=== PATIENT | male | born 1940 | race Two or more races ===

== ENCOUNTER 2024-07-04 20:40 | Inpatient (IN) | payer MEDICARE ==
[~2024-07-04] VITALS: Ht 170.2 cm; Wt 58.5 kg
[2024-07-04 20:40] VITALS: BP 105/54; PULSE 77; RESP 17; RESP 18; TEMP 36.61404; TEMP 36.6404; O2SAT 98
[2024-07-04 23:28] VITALS: BP 105/54; PULSE 77; RESP 17; TEMP 36.61404; O2SAT 98
[2024-07-05] MEDS ORDERED: ONDANSETRON HCL 4MG/2ML INJ IV PRN (01:00)
[2024-07-05] MEDS ORDERED: MAGNESIUM HYDROXIDE 400MG/5ML 30ML UDC PO PRN (01:00)
[2024-07-05] MEDS: MEMANTINE HCL 5MG TABLET PO SCH (02:04)
[2024-07-05] MEDS: CARBIDOPA/LEVODOPA 25/100MG TABLET PO NR (02:04)
[2024-07-05 07:19] LABS: CHLORIDE 102 mEq/L (98-107); POTASSIUM 4.2 mEq/L (3.5-5.1); SODIUM 136 mEq/L (136-145)
[2024-07-05 07:20] LABS: CALCIUM 9.3 mg/dL (8.7-10.4); CARBON DIOXIDE 27 mEq/L (21-32)
[2024-07-05 07:25] LABS: CREATININE 0.6 mg/dL (0.6-1.3); GLUCOSE 111 mg/dL (70-105)
[2024-07-05 07:26] LABS: UREA NITROGEN BLOOD 11 mg/dL (9-23)
[2024-07-05 07:27] LABS: ALANINE AMINOTRANSFERASE < 7 IU/L (10-49); ALBUMIN 4.1 g/dL (3.2-4.8); ASPARTATE AMINOTRANSFERASE 18 IU/L (<34)
[2024-07-05 07:28] LABS: BILIRUBIN TOTAL 0.9 mg/dL (0.1-1.0); PREALBUMIN 19.3 mg/dl (10.0-40.0); PROTEIN TOTAL 6.8 g/dL (6.0-8.3)
[2024-07-05 07:41] LABS: BASOPHILS % 0.5 % (0.0-2.0); EOSINOPHILS % 2.6 % (0.0-5.0); HEMATOCRIT. 44.4 % (42.0-52.0); HEMOGLOBIN. 14.3 g/dL (14.0-18.0); LYMPHOCYTES % 25.7 % (20.0-50.0); MEAN CORPUSCULAR HEMOGLOBIN 30.7 pg (28.0-32.0); MEAN CORPUSCULAR HGB CONC 32.2 g/dL (31.0-37.0); MEAN CORPUSCULAR VOLUME 95.2 fL (80.0-94.0); MEAN PLATELET VOLUME 6.3 fl (7.4-10.4); NEUTROPHILS % 61.2 % (40.0-76.0); PLATELET 270 x1000/uL (130-400); RED BLOOD CELL COUNT 4.67 mill/uL (4.7-6.1); RED CELL DISTRIBUTION WIDTH 14.5 % (11.6-14.6); WHITE BLOOD COUNT 7.6 x1000/uL (4.5-11.0)
[2024-07-05] MEDS ORDERED: VENL75CA56 PO (07:57)
[2024-07-05] MEDS ORDERED: APIX5TAB PO (07:57)
[2024-07-05] MEDS ORDERED: MEMA5TAB42 PO (07:57)
[2024-07-05] MEDS ORDERED: DONE5TAB33 PO (07:57)
[2024-07-05] MEDS ORDERED: METO-385 PO (07:57)
[2024-07-05] MEDS ORDERED: AMAN100C18 PO (07:57)
[2024-07-05] MEDS ORDERED: ROPI0.2534 PO (07:57)
[2024-07-05] MEDS ORDERED: [UNRECOGNIZED DRUG - CODE] PO (07:57)
[2024-07-05] MEDS ORDERED: TRAZ-251 PO (07:57)
[2024-07-05] MEDS ORDERED: TAMS-11 PO (07:57)
[2024-07-05 08:00] VITALS: BP 109/54; PULSE 68; RESP 17; TEMP 36.28068; O2SAT 98
[2024-07-05] MEDS: CALCITONIN,SALMON, 3.7 ML NASAL SPRAY ONENSTRL SCH (09:00)
[2024-07-05] MEDS: CHOLECALCIFEROL (D3) 1000 UNIT TABLET PO SCH (09:16)
[2024-07-05] MEDS: METOPROLOL SUCCINATE 50MG ER TABLET PO SCH (09:17)
[2024-07-05] MEDS: DOCUSATE SODIUM 100MG CAPSULE PO SCH (09:18)
[2024-07-05] MEDS: POLYETHYLENE GLYCOL 3350 (17GM) 1 DOSE PACK PO SCH (09:18)
[2024-07-05] MEDS: TAMSULOSIN HCL 0.4MG SR CAPSULE PO SCH (09:18)
[2024-07-05] MEDS: FAMOTIDINE 20MG TABLET PO SCH (10:04)
[2024-07-05] MEDS ORDERED: CARB-324 PO (10:23)
[2024-07-05] MEDS ORDERED: NALOXONE HCL 0.4MG/ML VIAL IV PRN (10:30)
[2024-07-05] MEDS: ASPIRIN 81MG EC TABLET PO SCH (11:11)
[2024-07-05] MEDS: CARBIDOPA/LEVODOPA 25/100MG TABLET PO SCH (13:00)
[2024-07-05] MEDS: VENLAFAXINE HCL 37.5MG SR CAPSULE 24HR PO SCH (13:00)
[2024-07-05 20:00] VITALS: BP 125/67; PULSE 76; RESP 17; TEMP 36.28068
[2024-07-05] MEDS: DONEPEZIL HCL 10MG TABLET PO SCH (21:39)
[2024-07-05] MEDS: ROPINIROLE HCL 0.25MG TABLET PO SCH (21:39)
[2024-07-06 07:31] LABS: BASOPHILS % 0.5 % (0.0-2.0); EOSINOPHILS % 2.3 % (0.0-5.0); HEMATOCRIT. 45.1 % (42.0-52.0); HEMOGLOBIN. 14.4 g/dL (14.0-18.0); LYMPHOCYTES % 31.4 % (20.0-50.0); MEAN CORPUSCULAR HEMOGLOBIN 30.5 pg (28.0-32.0); MEAN CORPUSCULAR HGB CONC 31.8 g/dL (31.0-37.0); MEAN CORPUSCULAR VOLUME 95.8 fL (80.0-94.0); MONOCYTES % 9.5 % (2.0-8.0); NEUTROPHILS % 56.3 % (40.0-76.0); PLATELET 260 x1000/uL (130-400); RED BLOOD CELL COUNT 4.71 mill/uL (4.7-6.1); RED CELL DISTRIBUTION WIDTH 14.8 % (11.6-14.6); WHITE BLOOD COUNT 7.4 x1000/uL (4.5-11.0)
[2024-07-06 07:43] LABS: CARBON DIOXIDE 29 mEq/L (21-32); CHLORIDE 102 mEq/L (98-107); POTASSIUM 4.9 mEq/L (3.5-5.1); SODIUM 136 mEq/L (136-145)
[2024-07-06 07:44] LABS: CALCIUM 9.8 mg/dL (8.7-10.4)
[2024-07-06 07:48] LABS: IRON 94 ug/dL (65-175)
[2024-07-06 07:49] LABS: CREATININE 0.6 mg/dL (0.6-1.3); GLUCOSE 111 mg/dL (70-105); UREA NITROGEN BLOOD 11 mg/dL (9-23)
[2024-07-06 07:51] LABS: THYROID STIMULATING HORMONE 1.42 uIU/mL (0.55-4.78); TOTAL IRON BINDING CAPACITY 196 ug/dl (250-425)
[2024-07-06 07:52] LABS: FERRITIN 93 ng/mL (22-322)
[2024-07-06 07:58] VITALS: BP_SYST 115; BP_SYST 140; BP_DIAS 59; BP_DIAS 90; PULSE 78; PULSE 80; RESP 18; RESP 20; TEMP 36.114; TEMP 36.78072; O2SAT 95; O2SAT 98
[2024-07-06 08:17] LABS: VITAMIN B12 SERUM > 2000 pg/mL (211-911)
[2024-07-06] MEDS: METOPROLOL SUCCINATE 25MG ER TABLET PO SCH (08:36)
[2024-07-06 20:00] VITALS: BP 121/64; PULSE 102; RESP 18; TEMP 37.16964; O2SAT 96
[2024-07-07 08:00] VITALS: BP 111/56; PULSE 113; RESP 26; TEMP 36.72516; O2SAT 96
[2024-07-07] MEDS: HYDROCODONE/ACETAMINOPHEN 5/325MG TABLET PO PRN (10:14)
[2024-07-07] MEDS: ERGOCALCIFEROL 50000UNITS CAPSULE PO SCH (15:38)
[2024-07-07 20:30] VITALS: BP 104/59; PULSE 102; RESP 18; TEMP 36.72516; O2SAT 95
[2024-07-08 06:44] LABS: AMMONIA < 17 uMol/L (<32)
[2024-07-08 08:00] VITALS: BP 97/53; PULSE 89; RESP 20; TEMP 36.44736; O2SAT 97
[2024-07-08 08:08] LABS: CLARITY URINE CLEAR (CLEAR); COLOR URINE DARK YELLOW (YELLOW); GLUCOSE URINE NEGATIVE (NEGATIVE); KETONES URINE 1+ (NEGATIVE); LEUKOCYTE ESTERASE URINE TRACE (NEGATIVE); NITRITE URINE NEGATIVE (NEGATIVE); OCCULT BLOOD URINE NEGATIVE (NEGATIVE); PROTEIN URINE NEGATIVE (NEGATIVE); SPECIFIC GRAVITY URINE 1.023 (1.005-1.030)
[2024-07-08] MEDS: RIVASTIGMINE 4.6 MG/24 HR TD SCH (09:24)
[2024-07-08 10:19] LABS: BACTERIA URINE TRACE; RBC URINE NONE SEEN /hpf (0-2); SQUAMOUS EPITHELIAL CELL URINE FEW /lpf (RARE/1+); WBC URINE 0-2 /hpf (0-2)
[2024-07-08 10:20] LABS: AMORPHOUS SEDIMENT URINE 1+ /lpf
[2024-07-08] MEDS: DEXT 5%/0.45% NACL KCL 20MEQ/L 1,000 ML IV SCH (18:52)
[2024-07-08 20:00] VITALS: BP 108/46; PULSE 84; RESP 18; TEMP 37.00296; O2SAT 97
[2024-07-09 06:13] LABS: BASOPHILS % 0.5 % (0.0-2.0); EOSINOPHILS % 2.2 % (0.0-5.0); HEMATOCRIT. 40.2 % (42.0-52.0); HEMOGLOBIN. 13.2 g/dL (14.0-18.0); LYMPHOCYTES % 23.2 % (20.0-50.0); MEAN CORPUSCULAR HEMOGLOBIN 30.9 pg (28.0-32.0); MEAN CORPUSCULAR HGB CONC 32.9 g/dL (31.0-37.0); MEAN CORPUSCULAR VOLUME 93.8 fL (80.0-94.0); MEAN PLATELET VOLUME 6.4 fl (7.4-10.4); MONOCYTES % 11.2 % (2.0-8.0); NEUTROPHILS % 62.9 % (40.0-76.0); PLATELET 261 x1000/uL (130-400); RED BLOOD CELL COUNT 4.28 mill/uL (4.7-6.1); RED CELL DISTRIBUTION WIDTH 14.6 % (11.6-14.6); WHITE BLOOD COUNT 8.2 x1000/uL (4.5-11.0)
[2024-07-09 06:23] LABS: CHLORIDE 102 mEq/L (98-107); POTASSIUM 4.2 mEq/L (3.5-5.1); SODIUM 134 mEq/L (136-145)
[2024-07-09 06:24] LABS: CARBON DIOXIDE 28 mEq/L (21-32)
[2024-07-09 06:29] LABS: CREATININE 0.6 mg/dL (0.6-1.3); GLUCOSE 130 mg/dL (70-105); UREA NITROGEN BLOOD 9 mg/dL (9-23)
[2024-07-09 06:30] LABS: ALANINE AMINOTRANSFERASE 12 IU/L (10-49)
[2024-07-09 06:31] LABS: ALBUMIN 3.9 g/dL (3.2-4.8); ASPARTATE AMINOTRANSFERASE 11 IU/L (<34); BILIRUBIN TOTAL 1.1 mg/dL (0.1-1.0); PROTEIN TOTAL 6.4 g/dL (6.0-8.3)
[2024-07-09 08:00] VITALS: BP 122/56; PULSE 72; RESP 20; TEMP 36.114; O2SAT 100
[2024-07-09 20:00] VITALS: BP 106/58; PULSE 77; RESP 20; TEMP 37.05852; O2SAT 99
[2024-07-10 08:00] VITALS: BP 122/49; PULSE 79; RESP 20
[2024-07-10] MEDS: ACETAMINOPHEN 500MG TABLET PO PRN (09:18)
[2024-07-10 13:22] LABS: CHLORIDE 100 mEq/L (98-107); SODIUM 132 mEq/L (136-145)
[2024-07-10 13:23] LABS: CARBON DIOXIDE 24 mEq/L (21-32)
[2024-07-10 13:24] LABS: CALCIUM 9.4 mg/dL (8.7-10.4)
[2024-07-10 13:28] LABS: CREATININE 0.6 mg/dL (0.6-1.3)
[2024-07-10 13:29] LABS: GLUCOSE 158 mg/dL (70-105); UREA NITROGEN BLOOD 8 mg/dL (9-23)
[2024-07-10 13:30] LABS: ALANINE AMINOTRANSFERASE 17 IU/L (10-49); ALBUMIN 4.3 g/dL (3.2-4.8); ASPARTATE AMINOTRANSFERASE 17 IU/L (<34); BILIRUBIN TOTAL 0.8 mg/dL (0.1-1.0)
[2024-07-10 13:31] LABS: PROTEIN TOTAL 7.2 g/dL (6.0-8.3)
[2024-07-10] MEDS: CARBIDOPA/LEVODOPA 10/100MG TABLET PO SCH (17:37)
[2024-07-10 20:00] VITALS: BP 125/59; PULSE 87; RESP 20; TEMP 36.50292; O2SAT 100
[2024-07-10] MEDS: APIXABAN 5 MG TABLET PO SCH (21:27)
[2024-07-11 08:00] VITALS: BP 133/55; PULSE 82; RESP 18; TEMP 36.61404; O2SAT 95
[2024-07-11] MEDS: AMANTADINE 100MG CAPSULE PO SCH (08:21)
[2024-07-11] MEDS: CARBIDOPA/LEVODOPA 10/100MG TABLET PO SCH (17:52)
[2024-07-11 20:00] VITALS: BP 118/44; PULSE 78; RESP 19; TEMP 36.28068; O2SAT 100
[2024-07-12 08:00] VITALS: BP 122/50; PULSE 82; RESP 18; TEMP 36.28068; O2SAT 99
[2024-07-12] MEDS: METHYLPHENIDATE HCL 5MG TABLET PO SCH (10:23)
[2024-07-12 20:00] VITALS: BP 118/61; PULSE 76; RESP 17; TEMP 36.78072; O2SAT 95
[2024-07-13 05:51] LABS: HEMATOCRIT 40.8 % (42.0-52.0); HEMOGLOBIN 13.4 g/dL (14.0-18.0); MEAN CORPUSCULAR HEMOGLOBIN 31.1 pg (28.0-32.0); MEAN CORPUSCULAR HGB CONC 32.8 g/dL (31.0-37.0); MEAN CORPUSCULAR VOLUME 94.8 fL (80.0-94.0); PLATELET 305 x1000/uL (130-400); RED BLOOD CELL COUNT 4.31 mill/uL (4.7-6.1); RED CELL DISTRIBUTION WIDTH 14.4 % (11.6-14.6); WHITE BLOOD COUNT 6.6 x1000/uL (4.5-11.0)
[2024-07-13 05:52] LABS: CHLORIDE 104 mEq/L (98-107); POTASSIUM 4.1 mEq/L (3.5-5.1); SODIUM 136 mEq/L (136-145)
[2024-07-13 05:53] LABS: CALCIUM 9.3 mg/dL (8.7-10.4); CARBON DIOXIDE 28 mEq/L (21-32)
[2024-07-13 05:57] LABS: CREATININE 0.6 mg/dL (0.6-1.3)
[2024-07-13 05:58] LABS: GLUCOSE 111 mg/dL (70-105); UREA NITROGEN BLOOD 9 mg/dL (9-23)
[2024-07-13 08:00] VITALS: BP 106/62; PULSE 86; RESP 18; TEMP 36.33624; O2SAT 95
[2024-07-13] MEDS: VENLAFAXINE HCL 37.5MG TABLET PO SCH (18:46)
[2024-07-13] MEDS: CARBIDOPA/LEVODOPA 25/100MG TABLET PO SCH (18:46)
[2024-07-13 20:00] VITALS: BP 120/58; PULSE 74; RESP 18; TEMP 37.00296; O2SAT 98
[2024-07-13] MEDS: MEMANTINE HCL 5MG TABLET PO SCH (21:36)
[2024-07-13] MEDS: ROPINIROLE HCL 0.25MG TABLET PO SCH (22:00)
[2024-07-14 08:00] VITALS: BP 137/62; PULSE 76; RESP 18; TEMP 36.22512; O2SAT 97
[2024-07-14] MEDS ORDERED: NON FORMULARY PATIENT HOME MED PO SCH (09:00)
[2024-07-14] MEDS: AMANTADINE 100MG CAPSULE PO SCH (09:00)
[2024-07-14] MEDS: CYANOCOBALAMIN/FA/PYRIDOXINE TABLET PO SCH (09:00)
[2024-07-14] MEDS: DONEPEZIL HCL 5MG TABLET PO SCH (09:00)
[2024-07-14 20:00] VITALS: BP 106/58; PULSE 76; RESP 18; TEMP 36.50292; O2SAT 96
[2024-07-15 08:00] VITALS: BP 113/83; PULSE 81; RESP 19; TEMP 36.78072; O2SAT 99
[2024-07-15 20:00] VITALS: BP 129/62; PULSE 86; RESP 18; TEMP 36.78072; O2SAT 100
[2024-07-16 08:00] VITALS: BP 138/65; PULSE 80; RESP 18; TEMP 36.114; O2SAT 99
[2024-07-16 20:00] VITALS: BP 102/56; PULSE 75; RESP 18; TEMP 36.22512; O2SAT 97
[2024-07-17 07:25] LABS: BASOPHILS % 0.9 % (0.0-2.0); EOSINOPHILS % 3.3 % (0.0-5.0); HEMATOCRIT. 46.7 % (42.0-52.0); HEMOGLOBIN. 14.9 g/dL (14.0-18.0); LYMPHOCYTES % 32.5 % (20.0-50.0); MEAN CORPUSCULAR HEMOGLOBIN 30.4 pg (28.0-32.0); MEAN CORPUSCULAR HGB CONC 31.8 g/dL (31.0-37.0); MEAN CORPUSCULAR VOLUME 95.7 fL (80.0-94.0); MEAN PLATELET VOLUME 6.1 fl (7.4-10.4); MONOCYTES % 7.1 % (2.0-8.0); NEUTROPHILS % 56.2 % (40.0-76.0); PLATELET 318 x1000/uL (130-400); RED BLOOD CELL COUNT 4.88 mill/uL (4.7-6.1); RED CELL DISTRIBUTION WIDTH 14.5 % (11.6-14.6); WHITE BLOOD COUNT 7.6 x1000/uL (4.5-11.0)
[2024-07-17 07:55] LABS: CALCIUM 9.6 mg/dL (8.7-10.4); CARBON DIOXIDE 26 mEq/L (21-32); CHLORIDE 103 mEq/L (98-107); POTASSIUM 4.1 mEq/L (3.5-5.1); SODIUM 135 mEq/L (136-145)
[2024-07-17 08:00] VITALS: BP 144/81; PULSE 99; RESP 18; TEMP 36.33624; O2SAT 100
[2024-07-17 08:00] LABS: CREATININE 0.6 mg/dL (0.6-1.3)
[2024-07-17 08:01] LABS: GLUCOSE 92 mg/dL (70-105); UREA NITROGEN BLOOD 8 mg/dL (9-23)
[2024-07-17] MEDS: ROPINIROLE HCL 0.25MG TABLET PO SCH (10:25)
[2024-07-17 20:00] VITALS: BP 115/63; PULSE 87; RESP 18; TEMP 36.22512; O2SAT 97
[2024-07-18 08:00] VITALS: BP 119/64; PULSE 70; RESP 18; TEMP 36.114; O2SAT 100
[2024-07-18 20:00] VITALS: BP 107/53; PULSE 101; RESP 17; TEMP 36.22512; O2SAT 96
[2024-07-19 08:00] VITALS: BP 116/47; PULSE 76; RESP 18; TEMP 36.22512; O2SAT 99
[2024-07-19 20:00] VITALS: BP 111/55; PULSE 79; RESP 18; TEMP 36.55848; O2SAT 97
[2024-07-20 08:00] VITALS: BP 120/57; PULSE 76; RESP 18; TEMP 36.55848; O2SAT 98
[2024-07-20 20:00] VITALS: BP 113/47; PULSE 87; RESP 18; TEMP 36.89184; O2SAT 98
[2024-07-21 07:55] VITALS: BP 128/52; PULSE 62; RESP 18; TEMP 36.22512; O2SAT 95
[2024-07-21 11:43] VITALS: BP 128/52; PULSE 62; TEMP 97.2; O2SAT 95
== END 2024-07-21 13:05 | DRG 551 ==
PROVIDERS: ADMIT Physical Medicine & Rehabilitation Spinal Cord Injury Medicine; ATTEND Internal Medicine Pulmonary Disease
DX: S32.018A Other fracture of first lumbar vertebra, initial encounter for closed fracture (principal); E43 Unspecified severe protein-calorie malnutrition; G82.50 Quadriplegia, unspecified; S22.088A Other fracture of T11-T12 vertebra, initial encounter for closed fracture; F02.83 Dementia in other diseases classified elsewhere, unspecified severity, with mood disturbance; F33.1 Major depressive disorder, recurrent, moderate; G83.4 Cauda equina syndrome; I82.411 Acute embolism and thrombosis of right femoral vein; S32.028A Other fracture of second lumbar vertebra, initial encounter for closed fracture; S32.058A Other fracture of fifth lumbar vertebra, initial encounter for closed fracture; D64.9 Anemia, unspecified; E11.9 Type 2 diabetes mellitus without complications; E55.9 Vitamin D deficiency, unspecified; E78.5 Hyperlipidemia, unspecified; G20.A1 Parkinson's disease without dyskinesia, without mention of fluctuations; I10 Essential (primary) hypertension; M48.061 Spinal stenosis, lumbar region without neurogenic claudication; I25.10 Atherosclerotic heart disease of native coronary artery without angina pectoris; M81.0 Age-related osteoporosis without current pathological fracture; N40.0 Benign prostatic hyperplasia without lower urinary tract symptoms; R62.7 Adult failure to thrive; M54.9 Dorsalgia, unspecified; R00.0 Tachycardia, unspecified; R13.10 Dysphagia, unspecified; R29.6 Repeated falls; Z96.643 Presence of artificial hip joint, bilateral; W18.39XA Other fall on same level, initial encounter; Y93.89 Activity, other specified; Y92.89 Other specified places as the place of occurrence of the external cause; Y99.8 Other external cause status; Z68.20 Body mass index [BMI] 20.0-20.9, adult
CPT/HCPCS: 36415; 74230; 80048; 80053; 81003; 82140; 82306; 82607; 82728; 82746; 82962; 83540; 83550; 84134; 84443; 85025; 85027; 92523; 92610; 92611; 93970; 97110; 97112; 97116; 97162; 97166; 97530; 97535; C1893